=== PATIENT | male | born 1985 | race African-American/Black ===

== ENCOUNTER 2016-08-05 11:27 | Emergency (ER) | payer OTHER ==
[~2016-08-05] VITALS: Ht 185.4 cm; Wt 109.0 kg
[~2016-08-05 11:27] MED LIST: FLEXERIL10 MG PO; MOTRIN600 MG PO
[2016-08-05 12:48] LABS: HEMATOCRIT 46.7 % (38.0-50.0); MCH 27.1 PG (29.0-34.0); MCHC 32.3 G/DL (30.0-36.0); MCV 83.8 FL (86-99); MEAN PLAT.VOLUME 9.6 uM^3 (9.0-12.4); PLATELET COUNT 401 K/uL (156-360); RBC DIS.WIDTH-CV 13.2 % (11.8-14.6); RBC DIS.WIDTH-SD 40.7 % (39-53); RED BLOOD COUNT 5.57 M/uL (4.00-5.50)
[2016-08-05 12:51] LABS: WHITE BLOOD COUNT 13.3 K/uL (4.1-10.2)
[2016-08-05 12:58] LABS: CHLORIDE 108 mEq/L (99-109); POTASSIUM 3.4 mEq/L (3.7-5.4); SODIUM 139 mEq/L (136-147)
[2016-08-05 13:00] LABS: GLUCOSE 128 mg/dL (70-99)
[2016-08-05 13:01] LABS: ANION GAP 8 MEQ/L (2-14)
[2016-08-05 13:02] LABS: TOTAL BILIRUBIN 0.6 mg/dL (0.0-1.0)
[2016-08-05 13:03] LABS: ALKALINE PHOSPHATASE 94 IU/L (3-129)
[2016-08-05 13:04] LABS: GFR ESTIMATE (CALCULATED) > 59 mL/min/
[2016-08-05 13:05] LABS: UREA NITROGEN (BUN) 8 mg/dL (9-23)
[2016-08-05 13:38] LABS: ADD MIUA? YES; BILIRUBIN NEGATIVE; BLOOD LARGE; COLOR AMBER ((YELLOW)); GLUCOSE (STRIP) >=500; KETONES 5; LEUKOCYTES MODERATE; NITRITE POSITIVE; PROTEIN (STRIP) >=500; SPECIFIC GRAVITY 1.023 (1.000-1.030); UROBILINOGEN 0.2 MG/DL (0.2-1.0)
[2016-08-05 13:57] LABS: BACTERIA 2+ /HPF; EPITHELIAL CELLS RARE /HPF; MUCUS NONE SEEN /LPF; RED BLOOD CELLS TNTC /HPF (0-5); UCUL ADDED? YES; WHITE BLOOD CELLS 40-50 /HPF (0-5)
[2016-08-05] MEDS ORDERED: PERCOCET 5/31 TABLET PO (15:42)
[2016-08-05] MEDS ORDERED: CIPRO500 MG PO (15:42)
[2016-08-05] MEDS ORDERED: ZOFRAN ODT4 MG PO (15:42)
[2016-08-05 16:08] VITALS: BP 116/75
[2016-08-07 13:52] LABS: CHLAMYDIA TRACHOMATIS NEGATIVE; NEISSERIA GONORRHOEAE NEGATIVE
== END 2016-08-05 16:08 | disposition home or self-care (01) ==
LOC: EME 11:27
DX: N39.0 Urinary tract infection, site not specified (principal); N28.9 Disorder of kidney and ureter, unspecified; J45.909 Unspecified asthma, uncomplicated; E11.9 Type 2 diabetes mellitus without complications; E78.5 Hyperlipidemia, unspecified; I10 Essential (primary) hypertension; F17.200 Nicotine dependence, unspecified, uncomplicated
CPT/HCPCS: 74176; 80053; 81003; 85027; 87077; 87086; 87186; 87491; 87591; 99281; 99284; J1885